=== PATIENT | male | born 1960 | race Caucasian/White ===

== ENCOUNTER 2016-12-02 10:00 | Outpatient (CLI) | payer MEDICARE, MEDICAID ==
[2016-03-30 14:07] VITALS: O2SAT 98
== END 2016-12-02 10:01 | disposition home or self-care (01) | DRG 561 ==
LOC: CONVCARE 10:00
PROVIDERS: ATTEND Orthopaedic Surgery
DX: S52.202D Unspecified fracture of shaft of left ulna, subsequent encounter for closed fracture with routine healing (principal); S62.314D Displaced fracture of base of fourth metacarpal bone, right hand, subsequent encounter for fracture with routine healing
CPT/HCPCS: 73090; 73130

== ENCOUNTER 2017-06-03 09:13 | Emergency (ER) | payer MEDICARE, MEDICAID ==
[2017-06-03 09:19] VITALS: RESP 16; TEMP 97.6
[2017-06-03 09:43] LABS: CALCIUM 8.8 mg/dl (8.5-10.1); POTASSIUM 3.5 mMol/L (3.5-5.1)
[2017-06-03 09:53] LABS: HEMATOCRIT 38 % (39-53); MEAN CORPUSCULAR VOLUME 88 fL (80-100)
[2017-06-03 10:50] LABS: BASOPHILS % (MANUAL) 0 % (0-3); EOSINOPHILS % (MANUAL) 5 % (0-9); LYMPHOCYTES % (MANUAL) 20 % (10-50); NORMAL RBCS PRESENT; PLATELET MORPHOLOGY COMMENT DECREASED
[2017-06-03 11:25] VITALS: BP 119/85; PULSE 65; O2SAT 99
== END 2017-06-03 10:20 | disposition home or self-care (01) | DRG 101 ==
LOC: ED 09:13
DX: R56.9 Unspecified convulsions (principal)
CPT/HCPCS: 36415; 80048; 85007; 85027; 99282

== ENCOUNTER 2017-09-05 09:21 | Emergency (ER) | payer MEDICARE, MEDICAID ==
[2017-09-05 09:42] LABS: HEMATOCRIT 38 % (39-53); MEAN CORPUSCULAR HGB CONC 34.2 gm/dl (32.0-36.0); MEAN CORPUSCULAR VOLUME 86 fL (80-100)
[2017-09-05 09:47] VITALS: TEMP 98
[2017-09-05 09:51] LABS: CALCIUM 8.9 mg/dl (8.5-10.1); POTASSIUM 3.8 mMol/L (3.5-5.1)
[2017-09-05 09:55] VITALS: RESP 16
[2017-09-05 10:23] LABS: BASOPHILS % (MANUAL) 0 % (0-3); EOSINOPHILS % (MANUAL) 4 % (0-9); LYMPHOCYTES % (MANUAL) 27 % (10-50); NORMAL RBCS PRESENT
[2017-09-05 11:19] VITALS: O2SAT 94
[2017-09-05 11:20] VITALS: BP 129/101; PULSE 77
== END 2017-09-05 10:54 | disposition home or self-care (01) | DRG 87 ==
LOC: ED 09:21
DX: S06.9X1A Unspecified intracranial injury with loss of consciousness of 30 minutes or less, initial encounter (principal); S00.93XA Contusion of unspecified part of head, initial encounter; W19.XXXA Unspecified fall, initial encounter
CPT/HCPCS: 70450; 80048; 85007; 85027; 99284

== ENCOUNTER 2017-10-12 23:17 | Emergency (ER) | payer MEDICARE, MEDICAID ==
[2017-10-12 23:30] VITALS: RESP 18; TEMP 97.9
[2017-10-13 00:15] VITALS: BP 117/78; PULSE 58; O2SAT 99
== END 2017-10-13 00:04 | disposition home or self-care (01) | DRG 605 ==
LOC: ED 23:17
DX: S00.81XA Abrasion of other part of head, initial encounter (principal); S50.311A Abrasion of right elbow, initial encounter; W01.198A Fall on same level from slipping, tripping and stumbling with subsequent striking against other object, initial encounter
CPT/HCPCS: 99282; 99284

== ENCOUNTER 2017-11-29 17:20 | Emergency (ER) | payer MEDICARE, MEDICAID ==
[2017-11-29 17:29] VITALS: RESP 18
[2017-11-29] MEDS ORDERED: TRAMADOL HYDROCHLORIDE 50 MG TAB PO ONE (18:36)
[2017-11-29] MEDS ORDERED: TRAMADOL HYDROCHLORIDE 50 MG TAB ONE (18:38)
[2017-11-29 19:06] VITALS: O2SAT 95
[2017-11-29 19:28] LABS: BASOPHILS % (AUTO) 1 % (0-3); EOSINOPHILS % (AUTO) 0 % (0-9); HEMATOCRIT 41 % (39-53); MEAN CORPUSCULAR HGB CONC 34.8 gm/dl (32.0-36.0); MEAN CORPUSCULAR VOLUME 87 fL (80-100); MONOCYTES % (AUTO) 7.7 % (0-12); NEUTROPHILS % (AUTO) 88.3 % (37-80)
[2017-11-29 19:34] LABS: POTASSIUM 4.2 mMol/L (3.5-5.1)
[2017-11-29 19:43] VITALS: BP 109/85; PULSE 85; TEMP 100.5
== END 2017-11-29 19:55 | disposition short-term general hospital (02) | DRG 535 ==
LOC: ED 17:20
DX: S72.002A Fracture of unspecified part of neck of left femur, initial encounter for closed fracture (principal); R40.2312 Coma scale, best motor response, none, at arrival to emergency department; R40.2212 Coma scale, best verbal response, none, at arrival to emergency department; S42.92XA Fracture of left shoulder girdle, part unspecified, initial encounter for closed fracture; W19.XXXA Unspecified fall, initial encounter; R40.2142 Coma scale, eyes open, spontaneous, at arrival to emergency department
CPT/HCPCS: 36415; 70450; 80048; 85025; 99285; A9270-GY